=== PATIENT | female | born 1990 | race Caucasian/White ===

== ENCOUNTER 2021-10-08 15:14 | Inpatient (IN) ==
[2021-10-08 15:34] LABS: Pregnancy Test, Urine Negative (Negative)
[2021-10-08 15:37] LABS: Appearance Urine Clear (Clear); Bacteria Urine Automated Negative (Negative); Bilirubin Urine Negative (Negative); Blood Urine Trace (Negative); Color Urine Dark Yellow; Epithelial Cell Urine Auto >30 /lpf (0-5); Glucose Urine UA Negative (Negative); Ketones Urine 1+ (Negative); Leukocyte Esterase Urine Negative (Negative); Nitrite Urine Negative (Negative); Protein Urine Negative (Negative); RBC Urine Automated 0-4 /hpf (0-4); Specific Gravity Urine 1.025 (1.000-1.030); Urobilinogen Urine Negative (Negative)
[2021-10-08 15:51] LABS: Basophils # (auto) 0.02 K/uL (0-0.2); Basophils % (auto) 0.1 %; Eosinophils # (auto) 0.06 K/uL (0-0.5); Eosinophils % (auto) 0.3 %; Hemoglobin 13.4 g/dL (12.0-16.0); Immature Granulocytes # (auto) 0.03 K/uL (0.00-0.02); Immature Granulocytes % (auto) 0.2 %; Lymphocytes # (auto) 1.65 K/uL (1.2-3.4); Mean Corpuscular Hemoglobin 29.1 pg (25-34); Mean Corpuscular Hgb Conc 34.4 g/dL (32-36); Mean Corpuscular Volume 84.6 fL (80-100); Mean Platelet Volume 8.7 fL (7.4-10.4); Monocytes # (auto) 1.42 K/uL (0.11-0.59); Monocytes % (auto) 7.8 %; Neutrophils # (auto) 15.07 K/uL (1.4-6.5); Neutrophils % (auto) 82.6 %; Platelet Count 378 K/uL (130-400); RDW Coefficient of Variation 14.3 % (11.5-14.5); RDW Standard Deviation 44.1 fL (36.4-46.3); Red Blood Count 4.61 M/uL (4.2-5.4); White Blood Count 18.25 K/uL (4.8-10.8)
[2021-10-08 16:17] LABS: Albumin Globulin Ratio 1.1 (0.9-2); Albumin Level 3.9 gm/dl (3.4-5.0); BUN Creatinine Ratio 18.1 (10-20); Bilirubin,Total 0.5 mg/dl (0.2-1.0); Calcium 7.4 mg/dl (8.5-10.1); Creatinine Clr Calc Pharmacy 121.3 ml/min; Est GFR (African American) 108.1 ml/min; Est GFR (Non-African American) 93.3 ml/min; Globulin 3.5 gm/dl (2.5-4.0); Potassium 3.6 mmol/L (3.5-5.1); Total Protein 7.4 gm/dl (6.0-8.3)
[2021-10-08] MEDS ORDERED: SODIUM CHLORIDE 0.9% 1000ML 1,000 ML IV ONE (16:25)
[2021-10-08] MEDS ORDERED: KETOROLAC TROMETHAMINE 15 MG/ML VIAL IV STA (16:25)
--- NOTE | 2021-10-08 16:43 | Emergency Department Note ---
Impression & Plan Acute diverticulitis ED Provider Note CHIEF COMPLAINT: Left sided abdominal and flank pain HISTORY OF PRESENTING ILLNESS: This is a 30-year-old female presents to the emergency department by private vehicle with complaint of left-sided abdominal and flank pain. The patient. hCG negative. Urinalysis notes that she got her normal period last week, and initially was having some lower abdominal pain that she attributed to menstrual cramps, however over the past 2-3 days she has had worsening pain that now radiates up her left side and into her left flank area. She states the pain has been a constant dull ache with intermittent sharp stabbing pains on the left and she currently rates her pain 7/10. She has had some associated intermittent nausea, but denies any vomiting. She denies fevers or chills. She denies diarrhea, constipation, bloody or black stools. She notes that her urine has been darker than usual but she also feels she may be dehydrated. She denies any dysuria, urinary frequency or urgency, or foul- smelling urine. She denies any history of abdominal surgeries. She denies any concerns for , noting she had a normal period last week and is on control. REVIEW OF SYSTEMS: A complete 10 point review of systems was reviewed with the patient with pertinent positives and negatives as per history of present illness. All else were negative. PAST MEDICAL HISTORY: Hypothyroidism with history of thyroid cancer, s/p thyroidectomy, anxiety SOCIAL HISTORY: Lives at home, she is a current everyday smoker ALLERGIES: No known allergy PHYSICAL EXAM: CONSTITUTIONAL: Pleasant and cooperative. Nontoxic-appearing and in no acute distress. Mildly dehydrated, but otherwise well appearing and well nourished. HEENT: Normocephalic, atraumatic. Pharynx normal. Tacky mucous membranes. NECK: Supple, full active range of motion without discomfort. RESPIRATORY: Clear to auscultation bilaterally with no wheezing, crackles, rhonchi or stridor. Equal expansion bilaterally. CARDIOVASCULAR: Regular rate and rhythm with no murmurs, rubs or gallops. Normal peripheral perfusion. No edema. GASTROINTESTINAL: Tender to palpation in the left mid and lower abdomen and left flank, slight guarding. No rebound tenderness. The remainder of the abdomen is nontender, soft and nondistended. Obese abdomen. No palpable masses or HSM. Bowel sounds present in all quadrants. No CVA tenderness bilaterally. MUSCULOSKELETAL: Full range of motion of all joints without discomfort. INTEGUMENTARY: No rash or other significant dermatologic conditions noted. NEUROLOGIC: Alert and oriented X 4 with normal affect. Normal strength and sensation in all 4 extremities. Normal speech. Normal gait observed. ED COURSE AND MEDICAL DECISION MAKING: CC: Patient presenting with complaint of left abdominal and flank pain DIFFERENTIAL DIAGNOSIS: Includes, but not limited to UTI, pyelonephritis, ureteral stone, diverticulitis, ovarian cyst, ovarian torsion, ectopic pr egnancy, TOA, PID, infections, small bowel obstruction, bowel perforation, inflammatory bowel disease, PUD, pancreatitis, biliary pathology, hernia, volvulus, constipation, among others. INTERPRETATION OF LABS: Shows leukocytosis with left shift, no anemia, normal platelets, no significant electrolyte abnormalities, normal renal function, mildly elevated liver enzymes with a normal T bili and alk phos. Normal lipase. UA appears contaminated. Urine negative. MEDICATION RECONCILIATION: I attest that I have personally reviewed the patient's current medication list. INITIAL VITAL SIGNS REVIEW: I reviewed the patient's initial vital signs and interpret them as follows: T: Afebrile; BP: Hypertensive; HR: Mildly tachycardic; RR: Within normal limits; Pulse Ox: Within normal limits on room air. MDM SUMMARY: Patient was evaluated at bedside, history and physical exam performed. Patient is alert and oriented, in no acute distress, resting calmly in stretcher. Initial orders were placed by nursing staff under critical pathways for labs and urinalysis. These are still pending. The patient is quite tender in the left mid abdomen and flank region, but no CVA tenderness. No acute abdomen. She is afebrile and nontoxic-appearing, but does appear to be mildly dehydrated clinically. Additional orders were placed for urine , CT abdomen/pelvis with IV contrast, IV fluid bolus for hydration, IV Toradol for pain. Patient discussed with Dr. Brown, who agrees with my assessment, plan, and disposition. Labs and imaging reviewed, labs notable for leukocytosis, no other significant lab abnormalities. She is not . No evidence of UTI. CT imaging of the abdomen/pelvis notable for acute diverticulitis with microperforation of the descending colon with no other acute abdominal findings. I reassessed the patient and notified her of results. She is still in a lot of pain, orders were placed for IV morphine as well as IV Zofran to treat this. IV Zosyn was ordered to cover for the diverticulitis with microperforation. Covid test was also sent. I spoke on the phone with Dr. Dick, general surgery, who did not feel that the patient warranted any surgical intervention at this time and recommended admission to the hospitalist team. I spoke on the phone with Dr. Sharp, hospitalist, who agreed to evaluate the patient for admission. Patient reassessed multiple times throughout ED stay, she has remained hemodynamically stable, afebrile, tachycardia is downtrending, and her pain is improved after the morphine. The patient was updated on all results and plan for admission, all questions were answered to the best my ability and the patient was agreeable to this plan. The patient was stable at the time of admission. The chart was completed utilizing [employer] Speech voice recognition software. Grammatical errors, random word insertions, pronoun errors, and incomplete sentences are an occasional consequence of this system due to software limitations, ambient noise, and hardware issues. Any formal questions or concerns about the content, text, or information contained within the body of this dictation should be directly addressed to the nurse practitioner for clarification. 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 Beliefs That Will Affect Care: None Current Living Situation: Spouse Feels Safe at Home: Yes Assistive Devices: None Allergies Allergies Allergy/AdvReac Type Severity Reaction Status Date / Time No Known Allergies Allergy Unverified 10/08/21 16:32 Home Meds Home Medications Medication Instructions Recorded Confirmed levonorgestrel 0.15 mg-ethinyl 1 tab PO DAILY 05/11/21 10/08/21 estradiol 0.03 mg tablet levothyroxine 200 mcg tablet 200 mcg PO DAILY 05/11/21 10/08/21 paroxetine HCl 40 mg tablet 40 mg PO DAILY 05/11/21 10/08/21 Caltrate 600 plus D 1 tab PO BID 10/08/21 10/08/21 buspirone 5 mg tablet 7.5 mg PO BID 10/08/21 10/08/21 Previous Rx's Medication Instructions Recorded lorazepam 0.5 mg tablet (Ativan) 0.5 mg PO BID PRN #10 tab 05/11/21 Results & Data (ED) Vital Signs Vital Signs - 24 hr 10/08/21 15:16 10/08/21 16:54 10/08/21 18:00 Temperature 36.7 C Temperature Source Oral Pulse Rate 118 H Pulse Rate [Right Finger] 88 98 H Respiratory Rate 20 18 19 Respiratory Effort / Characteristics Non-Labored Non-Labored Spontaneous Respiratory Depth Normal Normal Respiratory Pattern Regular Blood Pressure 158/82 H Blood Pressure [Right Arm] 162/93 H 146/80 H Blood Pressure Mean 107 Blood Pressure Mean [Right Arm] 116 102 Blood Pressure Position Sitting Pulse Oximetry 98 100 98 Oxygen Delivery Method Room Air Room Air Room Air Sepsis Recent Fever Within 48 Hours No Sepsis New/Unexplained Change in Mental Status No Sepsis Action Taken by Nursing No Action Required Laboratory Data Result diagrams: 10/08/21 15:38 10/08/21 15:38 Lab Results 10/08/21 10/08/21 10/08/21 Range/Units 15:20 15:20 15:38 WBC 18.25 H (4.8-10.8) K/uL RBC 4.61 (4.2-5.4) M/uL Hgb 13.4 (12.0-16.0) g/dL Hct 39.0 (37-47) % MCV 84.6 (80-100) fL MCH 29.1 (25-34) pg MCHC 34.4 (32-36) g/dL RDW Std Deviation 44.1 (36.4-46.3) fL RDW Coeff of Leah 14.3 (11.5-14.5) % Plt Count 378 (130-400) K/uL MPV 8.7 (7.4-10.4) fL Immature Gran % (Auto) 0.2 % Neut % (Auto) 82.6 % Lymph % (Auto) 9.0 % Stephens % (Auto) 7.8 % Eos % (Auto) 0.3 % Baso % (Auto) 0.1 % Neut # (Auto) 15.07 H (1.4-6.5) K/uL Lymph # (Auto) 1.65 (1.2-3.4) K/uL Stephens # (Auto) 1.42 H (0.11-0.59) K/uL Eos # (Auto) 0.06 (0-0.5) K/uL Baso # (Auto) 0.02 (0-0.2) K/uL Immature Gran # (Auto) 0.03 H (0.00-0.02) K/uL Sodium (136-145) mmol/L Potassium (3.5-5.1) mmol/L Chloride (98-107) mmol/L Carbon Dioxide (21-32) mmol/L Anion Gap (3-11) BUN (6-23) mg/dl Creatinine (0.6-1.2) mg/dl Est Cr Clr Drug Dosing ml/min Est GFR ( Amer) ml/min Est GFR (Non-Af Amer) ml/min BUN/Creatinine Ratio (10-20) Glucose (70-99(Fasting)) mg/dl Calcium (8.5-10.1) mg/dl Total Bilirubin (0.2-1.0) mg/dl AST (13-39) U/L ALT (7-52) U/L Alkaline Phosphatase (34-104) U/L Total Protein (6.0-8.3) gm/dl Albumin (3.4-5.0) gm/dl Globulin (2.5-4.0) gm/dl Albumin/Globulin Ratio (0.9-2) Lipase (11-82) U/L Urine Color Dark Yellow Urine Appearance Clear (Clear) Urine pH 6.0 (4.5-7.5) Ur Specific [place] 1.025 (1.000-1.030) Urine Protein Negative (Negative) Urine Glucose (UA) Negative (Negative) Urine Ketones 1+ H (Negative) Urine Blood Trace H (Negative) Urine Nitrite Negative (Negative) Urine Bilirubin Negative (Negative) Urine Urobilinogen Negative (Negative) Ur Leukocyte Esterase Negative (Negative) Urine WBC (Auto) 1-5 (0-5) /hpf Urine RBC (Auto) 0-4 (0-4) /hpf U Hyaline Cast (Auto) 1-5 (0-5) /lpf U Epithel Cells (Auto) >30 H (0-5) /lpf Urine Bacteria (Auto) Negative (Negative) Urine Test Negative (Negative) SARS-CoV-2, RNA, NAAT (NEGATIVE) 10/08/21 10/08/21 Range/Units 15:38 17:56 WBC (4.8-10.8) K/uL RBC (4.2-5.4) M/uL Hgb (12.0-16.0) g/dL Hct (37-47) % MCV (80-100) fL MCH (25-34) pg MCHC (32-36) g/dL RDW Std Deviation (36.4-46.3) fL RDW Coeff of Leah (11.5-14.5) % Plt Count (130-400) K/uL MPV (7.4-10.4) fL Immature Gran % (Auto) % Neut % (Auto) % Lymph % (Auto) % Stephens % (Auto) % Eos % (Auto) % Baso % (Auto) % Neut # (Auto) (1.4-6.5) K/uL Lymph # (Auto) (1.2-3.4) K/uL Stephens # (Auto) (0.11-0.59) K/uL Eos # (Auto) (0-0.5) K/uL Baso # (Auto) (0-0.2) K/uL Immature Gran # (Auto) (0.00-0.02) K/uL Sodium 140 (136-145) mmol/L Potassium 3.6 (3.5-5.1) mmol/L Chloride 106 (98-107) mmol/L Carbon Dioxide 23 (21-32) mmol/L Anion Gap 11 (3-11) BUN 15 (6-23) mg/dl Creatinine 0.83 (0.6-1.2) mg/dl Est Cr Clr Drug Dosing 121.3 ml/min Est GFR ( Amer) 108.1 ml/min Est GFR (Non-Af Amer) 93.3 ml/min BUN/Creatinine Ratio 18.1 (10-20) Glucose 92 (70-99(Fasting)) mg/dl Calcium 7.4 L (8.5-10.1) mg/dl Total Bilirubin 0.5 (0.2-1.0) mg/dl AST 42 H (13-39) U/L ALT 101 H (7-52) U/L Alkaline Phosphatase 56 (34-104) U/L Total Protein 7.4 (6.0-8.3) gm/dl Albumin 3.9 (3.4-5.0) gm/dl Globulin 3.5 (2.5-4.0) gm/dl Albumin/Globulin Ratio 1.1 (0.9-2) Lipase 27 (11-82) U/L Urine Color Urine Appearance (Clear) Urine pH (4.5-7.5) Ur Specific [place] (1.000-1.030) Urine Protein (Negative) Urine Glucose (UA) (Negative) Urine Ketones (Negative) Urine Blood (Negative) Urine Nitrite (Negative) Urine Bilirubin (Negative) Urine Urobilinogen (Negative) Ur Leukocyte Esterase (Negative) Urine WBC (Auto) (0-5) /hpf Urine RBC (Auto) (0-4) /hpf U Hyaline Cast (Auto) (0-5) /lpf U Epithel Cells (Auto) (0-5) /lpf Urine Bacteria (Auto) (Negative) Urine Test (Negative) SARS-CoV-2, RNA, NAAT NEGATIVE (NEGATIVE) Administered Medications Buspirone HCl (Buspirone 7.5 Mg Tab) 7.5 mg PO BID LOUISA Stop: 11/07/21 21:36 Last Admin: 10/08/21 22:21 Dose: 7.5 mg Documented by: [id number] Enoxaparin Sodium (Enoxaparin Inj 40 Mg/0.4 Ml Syr) 40 mg SQ Q24H LOUISA Stop: 11/07/21 21:59 Last Admin: 10/08/21 22:21 Dose: 40 mg Documented by: [id number] Lactated Ringer's (Lr) 1,000 mls @ 80 mls/hr IV .[id number] LOUISA Stop: 11/07/21 21:36 Last Admin: 10/08/21 22:22 Dose: 80 mls/hr Documented by: [id number] Discontinued Medications Sodium Chloride (Nss 1000ml) 1,000 mls @ 999 mls/hr IV .[id number] ONE Stop: 10/08/21 17:25 Last Infusion: 10/08/21 17:54 Dose: 0 mls/hr Documented by: [id number] Admin: 10/08/21 16:53 Dose: 999 mls/hr Documented by: [id number] Piperacillin Sod/Tazobactam Sod (Zosyn) 4.5 gm in 120 mls @ 240 mls/hr IV NOW ONE Stop: 10/08/21 18:06 Last Infusion: 10/08/21 18:16 Dose: 0 mls/hr Documented by: [id number] Admin: 10/08/21 17:46 Dose: 240 mls/hr Documented by: [id number] Ioversol (Optiray 320 100ml) 94 ml IV ONCE ONE Stop: 10/08/21 17:09 Last Admin: 10/08/21 17:08 Dose: 94 ml Documented by: [id number] Ketorolac Tromethamine (Ketorolac Tromethamine 15 Mg/Ml Vial) 15 mg IV NOW STA Stop: 10/08/21 16:26 Last Admin: 10/08/21 16:51 Dose: 15 mg Documented by: [id number] Morphine Sulfate (Morphine Sulfate 4 Mg/Ml 1 Ml Carp\Vial) 4 mg IV NOW STA Stop: 10/08/21 17:38 Last Admin: 10/08/21 18:32 Dose: 4 mg Documented by: [id number] Ondansetron HCl (Ondansetron Inj 2 Mg/Ml 2 Ml Vial) 4 mg IV NOW STA Stop: 10/08/21 17:38 Last Admin: 10/08/21 18:29 Dose: 4 mg Documented by: [id number] Imaging Data Radiologist's Impression: Abdomen/Pelvis CT 10/08/21 16:[address] WITH IV CONTRAST CT DOSE: 1303.09 mGy.cm HISTORY: Acute left-sided flank pain left flank and lower abd pain TECHNIQUE: Multiaxial CT images of the abdomen and pelvis were performed following the IV administration of 94 cc of Optiray, A dose lowering technique was utilized adhering to the principles of ALARA. COMPARISON STUDY: Chest radiograph 05/11/2021 FINDINGS: 3 mm solid nodule of the right middle lobe, image 31 series 3 is favored to be benign. The lung bases are otherwise clear. Unremarkable spleen, pancreas and adrenal glands. Contracted gallbladder. Hepatomegaly with suggested hepatic steatosis. Patent portal vein. 3 mm nonobstructing calculus of the interpolar right kidney. Kidneys are otherwise unremarkable. No hydronephrosis. The urinary bladder and uterus appear unremarkable. Aorta and IVC are within normal limits. No adenopathy. Small hiatal hernia. There is no bowel obstruction. Mild fecal retention. There is acute diverticulitis of the mid descending colon with moderate inflammation centered around a diverticulum on image 216. There are a few foci of adjacent extraluminal air. No abscess. Mild wall thickening of the transverse colon may be secondary to partial distention. Noninflamed appendix. Unremarkable soft tissues. No acute fracture. There are a few scattered probable bone islands noted within the pelvis. IMPRESSION: 1. Acute diverticulitis of the descending colon with evidence of microperforation. No abscess. 2. No bowel obstruction. 3. Small hiatal hernia. 4. 3 mm nonobstructing right renal calculus. ACT 112: Negative or not required by law. The above report was generated using voice recognition software. It may contain grammatical, syntax or spelling errors. Electronically signed by: Jasbir Lira M.D. 10/08/2021 5:26 PM Discharge Plan Visit Data Chief Complaint: Abdominal Pain Stated Complaint: LT ABDOM PAIN ED Provider: Ellis Brown ED Midlevel Provider: Crissy Mendez Discharge Problem: Acute diverticulitis Patient Disposition: Admitted As Inpatient Discharge Instructions Interventions: ED Discharge Assessment Last Done: 10/08/21 21:12
[2021-10-08] MEDS ORDERED: OPTIRAY 320 100ml IV ONE (17:08)
--- NOTE | 2021-10-08 17:27 | CT Scan Report ---
ABDOMEN AND PELVIS CT WITH IV CONTRAST CT DOSE: 1303.09 mGy.cm HISTORY: Acute left-sided flank pain left flank and lower abd pain TECHNIQUE: Multiaxial CT images of the abdomen and pelvis were performed following the IV administrat ion of 94 cc of Optiray, A dose lowering technique was utilized adhering to the principles of ALARA. COMPARISON STUDY: Chest radiograph 05/11/2021 FINDINGS: 3 mm solid nodule of the right middle lobe, image 31 series 3 is favored to be benign. The lung bases are otherwise clear. Unremarkable spleen, pancreas and adrenal glands. Contracted gallblad ja. Hepatomegaly with suggested hepatic steatosis. Patent portal vein. 3 mm nonobstructing calculus of the interpolar right kidney. Kidneys are otherwise unremarkable. No hydronephrosis. The urinary bl adder and uterus appear unremarkable. Aorta and IVC are within normal limits. No adenopathy. Small hiatal hernia. There is no bowel obstruction. Mild fecal retention. There is acute diverticulit is of the mid descending colon with moderate inflammation centered around a diverticulum on image 216 . There are a few foci of adjacent extraluminal air. No abscess. Mild wall thickening of the transver se colon may be secondary to partial distention. Noninflamed appendix. Unremarkable soft tissues. No acute fracture. There are a few scattered probable bone islands noted within the pelvis. IMPRESSION: 1. Acute diverticulitis of the descending colon with evidence of microperforation. No abscess. 2. No bowel obstruction. 3. Small hiatal hernia. 4. 3 mm nonobstructing right renal calculus. ACT 112: Negative or not required by law. The above report was generated using voice recognition software. It may contain grammatical, syntax o r spelling errors. Electronically signed by: Jasbir Lira M.D. 10/08/2021 5:26 PM
[2021-10-08] MEDS ORDERED: MoRPHine SULFATE 4 MG/ML 1 ML CARP\\VIAL IV STA (17:37)
[2021-10-08] MEDS ORDERED: PIPERACILL/TAZOBAC CONSULT ACTIVE PRN (17:37)
[2021-10-08] MEDS ORDERED: ONDANSETRON INJ 2 MG/ML 2 ML VIAL IV STA (17:37)
[2021-10-08] MEDS ORDERED: PIPERACILLIN/TAZOBACTAM 4.5 GM/120 ML BAG IV ONE (17:37)
--- NOTE | 2021-10-08 19:19 | History & Physical Report ---
Date of Service October 08, 2021 Assessment & Plan (1) Diverticulitis: Plan: With microperforationUnasyn, supportive care. Doubt she will need surgeryserial exams, time. (2) Hypothyroidism (acquired): Plan: Continue Synthroid (3) Anxiety: Plan: Offered reassurance and detailed explanations which helped considerably surrounding her medical details. Continue home meds (4) DVT prophylaxis: Plan: Lovenox (5) Discharge planning issues: [facility] Plan for IV antibiotics, and ultimate discharge home Counseled briefly on smoke cessation, and overall healthy lifestyle changes. History of Present Illness Chief Complaint: Abdominal pain Primary Care Provider: Kyle Carrasquillo Very pleasant 30-year-old female started about a week ago with abdominal painshe was having her period at the time so she really thought it was just heavy cramping, but the pain continued to worsen. Today it was very intense left-sided and left flank. Came to the ER for further evaluation, found to have diverticulitis with microperforation. No nausea or vomiting. No fevers chills or sweats, no chest pain shortness of breath. Past medical history includes thyroid cancer that is post thyroidectomy and she is greater than 5-year cancer free. Anxiety. Surgical history thyroidectomy Social history she smokes about 3 cigarettes a day on average, is interested in quitting. Her does not smoke, although he does chew tobacco. 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 Mom also has had kidney cancer as well as several other comorbidities Allergies Allergy/AdvReac Type Severity Reaction Status Date / Time No Known Allergies Allergy Unverified 10/08/21 16:32 Home Medications Medication Instructions Recorded Confirmed Type levonorgestrel 0.15 mg-ethinyl 1 tab PO DAILY 05/11/21 10/08/21 History estradiol 0.03 mg tablet levothyroxine 200 mcg tablet 200 mcg PO DAILY 05/11/21 10/08/21 History lorazepam 0.5 mg tablet (Ativan) 0.5 mg PO BID PRN #10 tab 05/11/21 10/08/21 Rx paroxetine HCl 40 mg tablet 40 mg PO DAILY 05/11/21 10/08/21 History Caltrate 600 plus D 1 tab PO BID 10/08/21 10/08/21 History buspirone 5 mg tablet 7.5 mg PO BID 10/08/21 10/08/21 History Past Med/Surg History Medical History (Updated 10/08/21 @ 20:39 by Jamison Sharp DO) Diverticulitis Hypothyroidism (acquired) Obesity, morbid, BMI 40.0-49.9 Social History Smoking Status: Current every day smoker Feels Safe at Home: Yes Review of Systems Review of Systems: All systems reviewed & are unremarkable except as noted in HPI & below Physical Exam Physical Exam: In general she is awake and alert pleasant no distress. HEENT normocephalic atraumatic mucous membranes moist. Cardio is regular no rubs murmurs or gallops. Lungs clear to auscultation bilaterally no rales rhonchi wheeze with good effort. Abdomen is soft nondistended she does have left-sided tenderness worst lateral flank, she noted be quite tender therehowever there is no guarding rebound or rigidity. Extremities show no sinus clubbing or edema, no calf tenderness. Neuro shows cranial nerves II through XII grossly intact gross motor and sensory intact. Musculoskeletal exam yields no gross lesions. Skin shows no rashes, no pallor, no icterus. Mental status shows good recent and remote recall normal mood and affect good judgment and insight. Results & Data Results & Data ([facility]) Vital Signs (Past 12 Hours) Vital Signs Temp Pulse Pulse Resp BP BP Pulse Ox 10/08/21 18:00 98 H 19 146/80 H 98 10/08/21 16:54 88 18 162/93 H 100 10/08/21 15:16 98.1 F 118 H 20 158/82 H 98 Code Status & VTE Plan VTE Prophylaxis Plan VTE Prophylaxis will be ordered: Yes PG Care Time/CCT Total # of Minutes Spent Total Time Spent with Patient: Total time spent is greater than 50% in coordination of care (as documented) at patient's floor/unit and/or counseling patient: Coding Level of Care Code 16041 Initial Inpt Care Lvl 3 Diagnoses Diverticulitis K57.92 Hypothyroidism (acquired) E03.9 Anxiety F41.9 DVT prophylaxis Z29.9 Discharge planning issues Z02.9
--- NOTE | 2021-10-08 19:20 | Surgery Consultation ---
Date of Consultation October 08, 2021 Assessment & Plan (1) Diverticulitis: 30-year-old female with uncomplicated diverticulitis No surgical intervention at this time IV antibiotics, npo, ivf's surgery will follow (2) Obesity, morbid, BMI 40.0-49.9: (3) Hypothyroidism (acquired): History of Present Illness Reason for Consultation: Diverticulitis History of Present Illness 30-year-old female presented to the emergency department with 2 weeks of progressive left lower quadrant and left flank abdominal pain. 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 No prior history of diverticulitis or other colon issues. Her mother did have a history of diverticulitis and eventually required sigmoidectomy. She has had thyroidectomy for thyroid cancer. No other significant medical problems. No blood thinners. No prior abdominal surgeries. No prior colonoscopy. Allergies Allergy/AdvReac Type Severity Reaction Status Date / Time No Known Allergies Allergy Unverified 10/08/21 16:32 Home Medications Medication Instructions Recorded Confirmed Type levonorgestrel 0.15 mg-ethinyl 1 tab PO DAILY 05/11/21 10/08/21 History estradiol 0.03 mg tablet levothyroxine 200 mcg tablet 200 mcg PO DAILY 05/11/21 10/08/21 History lorazepam 0.5 mg tablet (Ativan) 0.5 mg PO BID PRN #10 tab 05/11/21 10/08/21 Rx paroxetine HCl 40 mg tablet 40 mg PO DAILY 05/11/21 10/08/21 History Caltrate 600 plus D 1 tab PO BID 10/08/21 10/08/21 History buspirone 5 mg tablet 7.5 mg PO BID 10/08/21 10/08/21 History Patient History Medical History (Updated 10/08/21 @ 19:18 by Cj Dick DO, FACS) Diverticulitis Hypothyroidism (acquired) Obesity, morbid, BMI 40.0-49.9 Social History Smoking Status: Current every day smoker Feels Safe at Home: Yes Review of Systems Review of Systems: All systems reviewed & are unremarkable except as noted in HPI & below Physical Exam Constitutional: WD/WN, vitals as above + obese Respiratory: normal respiratory effort, lungs clear to auscultation Cardiovascular: RRR, no murmur, no edema Gastrointestinal (Abdomen): Percussion/Palpation: + abdomen tender (Left lower quadrant and left flank) and abdomen soft; no guarding, abdomen not rigid, no hepatosplenomegaly and no hernia Results & Data ([facility]) Vital Signs (Past 12 Hours) Vital Signs Temp Pulse Pulse Resp BP BP Pulse Ox 10/08/21 18:00 98 H 19 146/80 H 98 10/08/21 16:54 88 18 162/93 H 100 10/08/21 15:16 36.7 C 118 H 20 158/82 H 98 Laboratory Results Laboratory Results - last 24 hr 10/08/21 10/08/21 10/08/21 15:20 15:20 15:38 WBC 18.25 H RBC 4.61 Hgb 13.4 Hct 39.0 MCV 84.6 MCH 29.1 MCHC 34.4 RDW Std Deviation 44.1 RDW Coeff of Leah 14.3 Plt Count 378 MPV 8.7 Immature Gran % (Auto) 0.2 Neut % (Auto) 82.6 Lymph % (Auto) 9.0 Fisher % (Auto) 7.8 Eos % (Auto) 0.3 Baso % (Auto) 0.1 Neut # (Auto) 15.07 H Lymph # (Auto) 1.65 Fisher # (Auto) 1.42 H Eos # (Auto) 0.06 Baso # (Auto) 0.02 Immature Gran # (Auto) 0.03 H Sodium Potassium Chloride Carbon Dioxide Anion Gap BUN Creatinine Est Cr Clr Drug Dosing Est GFR ( Amer) Est GFR (Non-Af Amer) BUN/Creatinine Ratio Glucose Calcium Total Bilirubin AST ALT Alkaline Phosphatase Total Protein Albumin Globulin Albumin/Globulin Ratio Lipase Urine Color Dark Yellow Urine Appearance Clear Urine pH 6.0 Ur Specific [place] 1.025 Urine Protein Negative Urine Glucose (UA) Negative Urine Ketones 1+ H Urine Blood Trace H Urine Nitrite Negative Urine Bilirubin Negative Urine Urobilinogen Negative Ur Leukocyte Esterase Negative Urine WBC (Auto) 1-5 Urine RBC (Auto) 0-4 U Hyaline Cast (Auto) 1-5 U Epithel Cells (Auto) >30 H Urine Bacteria (Auto) Negative Urine Test Negative SARS-CoV-2, RNA, NAAT 10/08/21 10/08/21 15:38 17:56 WBC RBC Hgb Hct MCV MCH MCHC RDW Std Deviation RDW Coeff of Leah Plt Count MPV Immature Gran % (Auto) Neut % (Auto) Lymph % (Auto) Fisher % (Auto) Eos % (Auto) Baso % (Auto) Neut # (Auto) Lymph # (Auto) Fisher # (Auto) Eos # (Auto) Baso # (Auto) Immature Gran # (Auto) Sodium 140 Potassium 3.6 Chloride 106 Carbon Dioxide 23 Anion Gap 11 BUN 15 Creatinine 0.83 Est Cr Clr Drug Dosing 121.3 Est GFR ( Amer) 108.1 Est GFR (Non-Af Amer) 93.3 BUN/Creatinine Ratio 18.1 Glucose 92 Calcium 7.4 L Total Bilirubin 0.5 AST 42 H ALT 101 H Alkaline Phosphatase 56 Total Protein 7.4 Albumin 3.9 Globulin 3.5 Albumin/Globulin Ratio 1.1 Lipase 27 Urine Color Urine Appearance Urine pH Ur Specific [place] Urine Protein Urine Glucose (UA) Urine Ketones Urine Blood Urine Nitrite Urine Bilirubin Urine Urobilinogen Ur Leukocyte Esterase Urine WBC (Auto) Urine RBC (Auto) U Hyaline Cast (Auto) U Epithel Cells (Auto) Urine Bacteria (Auto) Urine Test SARS-CoV-2, RNA, NAAT NEGATIVE Diagnostic Findings ABDOMEN AND PELVIS CT WITH IV CONTRAST CT DOSE: 1303.09 mGy.cm HISTORY: Acute left-sided flank pain left flank and lower abd pain TECHNIQUE: Multiaxial CT images of the abdomen and pelvis were performed following the IV administration of 94 cc of Optiray, A dose lowering technique was utilized adhering to the principles of ALARA. COMPARISON STUDY: Chest radiograph 05/11/2021 FINDINGS: 3 mm solid nodule of the right middle lobe, image 31 series 3 is favored to be benign. The lung bases are otherwise clear. Unremarkable spleen, pancreas and adrenal glands. Contracted gallbladder. Hepatomegaly with suggested hepatic steatosis. Patent portal vein. 3 mm nonobstructing calculus of the interpolar right kidney. Kidneys are otherwise unremarkable. No hydronephrosis. The urinary bladder and uterus appear unremarkable. Aorta and IVC are within normal limits. No adenopathy. Small hiatal hernia. There is no bowel obstruction. Mild fecal retention. There is acute diverticulitis of the mid descending colon with moderate inflammation centered around a diverticulum on image 216. There are a few foci of adjacent extraluminal air. No abscess. Mild wall thickening of the transverse colon may be secondary to partial distention. Noninflamed appendix. Unremarkable soft tissues. No acute fracture. There are a few scattered probable bone islands noted within the pelvis. IMPRESSION: 1. Acute diverticulitis of the descending colon with evidence of microperforation. No abscess. 2. No bowel obstruction. 3. Small hiatal hernia. 4. 3 mm nonobstructing right renal calculus. PG Care Time/CCT Total # of Minutes Spent Total Time Spent with Patient: Total time spent is greater than 50% in coordination of care (as documented) at patient's floor/unit and/or counseling patient: Coding Level of Care Code 64073 Office/OBS Consult Lvl 3 Diagnoses Diverticulitis K57.92 Obesity, morbid, BMI 40.0-49.9 E66.01 Hypothyroidism (acquired) E03.9
[2021-10-08] MEDS ORDERED: LORazepam 0.5 MG TAB PO PRN (21:37)
[2021-10-08] MEDS ORDERED: ACETAMINOPHEN 1,000 MG/100 ML VIAL IV PRN (21:37)
[2021-10-08] MEDS ORDERED: MoRPHine SULFATE 4 MG/ML 1 ML CARP\\VIAL IV PRN (21:37)
[2021-10-08] MEDS ORDERED: ONDANSETRON INJ 2 MG/ML 2 ML VIAL IV PRN (21:37)
[2021-10-08] MEDS ORDERED: ACETAMINOPHEN 500 MG TAB PO PRN (21:51)
[2021-10-08] MEDS: busPIRone 7.5 MG TAB PO SCH (22:21)
[2021-10-08] MEDS: ENOXAPARIN INJ 40 MG/0.4 ML SYR SQ SCH (22:21)
[2021-10-08] MEDS: LACTATED RINGER'S 1,000 ML IV SCH (22:22)
[2021-10-08] MEDS ORDERED: Nursing to Pharmacy Communication SCH (22:45)
[2021-10-08] MEDS: AMPICILLIN/SULBACTAM SOD 3,000 MG in 0.9 % SODIUM CHLORIDE 100 ML IV SCH (23:47)
[2021-10-09] MEDS ORDERED: PARoxetine HCL 20 MG TAB PO ONE (00:15)
[2021-10-09] MEDS: LEVOTHYROXINE SODIUM 200 MCG TABLET PO SCH (05:38)
[2021-10-09] MEDS: AMPICILLIN/SULBACTAM SOD 3,000 MG in 0.9 % SODIUM CHLORIDE 100 ML IV SCH ×4 (05:38→23:54)
[2021-10-09 07:51] LABS: Basophils # (auto) 0.03 K/uL (0-0.2); Basophils % (auto) 0.2 %; Eosinophils # (auto) 0.12 K/uL (0-0.5); Eosinophils % (auto) 0.8 %; Hematocrit (blood only) 36.3 % (37-47); Hemoglobin 11.9 g/dL (12.0-16.0); Immature Granulocytes # (auto) 0.05 K/uL (0.00-0.02); Immature Granulocytes % (auto) 0.3 %; Lymphocytes # (auto) 1.51 K/uL (1.2-3.4); Mean Corpuscular Hemoglobin 28.1 pg (25-34); Mean Corpuscular Hgb Conc 32.8 g/dL (32-36); Mean Corpuscular Volume 85.6 fL (80-100); Mean Platelet Volume 8.9 fL (7.4-10.4); Monocytes # (auto) 1.11 K/uL (0.11-0.59); Monocytes % (auto) 7.4 %; Neutrophils # (auto) 12.24 K/uL (1.4-6.5); Neutrophils % (auto) 81.3 %; Platelet Count 292 K/uL (130-400); RDW Coefficient of Variation 14.6 % (11.5-14.5); RDW Standard Deviation 45.5 fL (36.4-46.3); Red Blood Count 4.24 M/uL (4.2-5.4); White Blood Count 15.06 K/uL (4.8-10.8)
[2021-10-09 08:17] LABS: BUN Creatinine Ratio 16.7 (10-20); Calcium 6.4 mg/dl (8.5-10.1); Creatinine Clr Calc Pharmacy 154.7 ml/min; Est GFR (African American) 135.5 ml/min; Est GFR (Non-African American) 116.9 ml/min; Potassium 3.7 mmol/L (3.5-5.1)
[2021-10-09] MEDS ORDERED: PARoxetine HCL 20 MG TAB PO SCH ×2 (09:00→21:00)
[2021-10-09] MEDS: busPIRone 7.5 MG TAB PO SCH ×2 (09:09→20:41)
[2021-10-09] MEDS: LEVONORGESTREL ETHINYL ESTRAD PO SCH (09:09)
--- NOTE | 2021-10-09 09:39 | Surgery Progress Note ---
Date of Service October 09, 2021 Assessment & Plan (1) Acute diverticulitis: Plan: Patient here with acute diverticulitis with microperforation WBC 15 (18), VSS and patient afebrile Pain improving, passing flatus, tolerating clears Continue IV abx today May consider further diet advancement this afternoon if feeling well Recommend outpatient colonoscopy in 6-8 wks with GI Upon time of dispo recommend a low fiber diet for a couple of weeks and complete a course of po abx Dr. Cruz covering over wknd if questions/concerns Admission and Anticipated Discharge Date Admission Date: October 08, 2021 Supervising Physician Co-Signing Physician Notes Patient seen and examined, agree with above. Admitted with uncomplicated diverticulitis. Feels slightly better this morning. On exam afebrile, tenderness to palpation in the left lower quadrant, though improved from yesterday. WBC 15 down from 18. Recommend continued IV antibiotics, advance diet as tolerated as pain resolves and white blood cell count normalizes. She should be discharged with antibiotics. Outpatient colonoscopy in 2 to 3 months after resolution of symptoms. No surgical indication at this time. Surgery will follow peripherally, Dr. Cruz covering over the weekend. Subjective Patient feeling well. Some crampiness in lower abdomen, but better than yesterday. Passing flatus, no BM. Tolerating clears Physical Exam Physical Exam: awake/alert, no acute distress Gastrointestinal (Abdomen): Percussion/Palpation: + abdomen tender (some discomfort to palpation in LLQ, improved) and abdomen soft Results & Data ([facility]) Vital Signs (Past 12 Hours) Vital Signs Temp Pulse Resp BP BP Pulse Ox 10/09/21 07:49 36.6 C 89 16 121/78 97 10/08/21 22:53 37.5 C 86 18 149/80 H 96 PG Care Time/CCT Total # of Minutes Spent Total Time Spent with Patient: Total time spent is greater than 50% in coordination of care (as documented) at patient's floor/unit and/or counseling patient: Coding Level of Care Code 12406 Subseq Hosp Care Lvl 1 Diagnoses Acute diverticulitis K57.92
[2021-10-09] MEDS: LACTATED RINGER'S 1,000 ML IV SCH ×2 (11:50→23:53)
--- NOTE | 2021-10-09 17:15 | Hospitalist Progress Note ---
Date of Service October 09, 2021 Assessment & Plan (1) Diverticulitis: Plan: With microperforationUnasyn, pain control and IV fluids remains on liquid diet (2) Hypothyroidism (acquired): Plan: Continue Synthroid (3) Anxiety: Plan: Offered reassurance and detailed explanations which helped considerably surrounding her medical details. Continue home meds (4) DVT prophylaxis: Plan: Lovenox (5) Discharge planning issues: Plan[facility] Plan for IV antibiotics, and ultimate discharge home Counseled briefly on smoke cessation, and overall healthy lifestyle changes. Admission and Anticipated Discharge Date Admission Date: October 08, 2021 Subjective pt has resolution in abdominal pain and now is just low level. surgery feels may need more antibiotic, and will slowly advance diet Review of Systems Review of Systems: Mild distress and fatigue no headache, no visual changes no speech or swallowing issues no chest pain, pressure or palpitations no shortness of breath, cough or wheezes Very mild left lower quadrant abdominal pain, no nausea or vomiting, no diarrhea but loose bowel movements no dysuria, hematuria or frequency no focal joint pain or swelling no back pain, CVA tenderness or radicular pain no bruising, bleeding or rashes no focal signs of weakness or numbness or altered sensation no complaints of anxiety or depression.. Physical Exam Physical Exam: The patient appeared well nourished and normally developed. Vital signs as documented. Head exam is normocephalic atraumatic Neck is without JVD, thyromegaly, or carotid bruits. Lungs are clear to auscultation, no focal loss of breath sounds Cardiac exam, Rhythm is regular.. No murmurs, rubs or gallops. Abdominal exam reveals normal bowel sounds, soft very mild left-sided tenderness no rebound no guarding Extremities are nonedematous and both pedal pulses are present Neurologic exam is alert and oriented, no focal loss of strength or sensation Skin is without bruises or rashes Psychologically is without concerns for anxiety or depression.. Results & Data Results & Data ([facility]) Vital Signs (Past 12 Hours) Vital Signs Temp Pulse Resp BP BP Pulse Ox 10/09/21 16:37 98.2 F 86 16 134/67 97 10/09/21 07:49 97.9 F 89 16 121/78 97 PG Care Time/CCT Total # of Minutes Spent Total Time Spent with Patient: Total time spent is greater than 50% in coordination of care (as documented) at patient's floor/unit and/or counseling patient: Coding Level of Care Code 40937 Subseq Hosp Care Lvl 1 Diagnoses Diverticulitis K57.92 Hypothyroidism (acquired) E03.9 Anxiety F41.9 DVT prophylaxis Z29.9 Discharge planning issues Z02.9
[2021-10-09] MEDS: ENOXAPARIN INJ 40 MG/0.4 ML SYR SQ SCH (20:41)
[2021-10-10] MEDS: AMPICILLIN/SULBACTAM SOD 3,000 MG in 0.9 % SODIUM CHLORIDE 100 ML IV SCH ×2 (05:53→12:03)
[2021-10-10] MEDS: LEVOTHYROXINE SODIUM 200 MCG TABLET PO SCH (05:54)
[2021-10-10] MEDS: LEVONORGESTREL ETHINYL ESTRAD PO SCH (09:00)
[2021-10-10] MEDS: busPIRone 7.5 MG TAB PO SCH (09:00)
[2021-10-10 09:48] LABS: Basophils # (auto) 0.02 K/uL (0-0.2); Basophils % (auto) 0.2 %; Eosinophils # (auto) 0.08 K/uL (0-0.5); Eosinophils % (auto) 0.8 %; Hematocrit (blood only) 34.9 % (37-47); Hemoglobin 11.5 g/dL (12.0-16.0); Immature Granulocytes # (auto) 0.03 K/uL (0.00-0.02); Immature Granulocytes % (auto) 0.3 %; Lymphocytes # (auto) 1.01 K/uL (1.2-3.4); Lymphocytes % (auto) 9.9 %; Mean Corpuscular Hemoglobin 27.9 pg (25-34); Mean Corpuscular Volume 84.7 fL (80-100); Mean Platelet Volume 9.1 fL (7.4-10.4); Monocytes % (auto) 5.9 %; Neutrophils # (auto) 8.45 K/uL (1.4-6.5); Neutrophils % (auto) 82.9 %; Platelet Count 306 K/uL (130-400); RDW Coefficient of Variation 14.2 % (11.5-14.5); RDW Standard Deviation 44.2 fL (36.4-46.3); Red Blood Count 4.12 M/uL (4.2-5.4); White Blood Count 10.19 K/uL (4.8-10.8)
[2021-10-10 10:14] LABS: BUN Creatinine Ratio 12.2 (10-20); Calcium 6.2 mg/dl (8.5-10.1); Creatinine Clr Calc Pharmacy 208.3 ml/min; Est GFR (African American) 149.4 ml/min; Est GFR (Non-African American) 128.9 ml/min; Potassium 3.5 mmol/L (3.5-5.1)
[2021-10-10] MEDS: LACTATED RINGER'S 1,000 ML IV SCH (12:04)
--- NOTE | 2021-10-10 12:38 | Discharge Summary ---
Date of Service October 10, 2021 Admission HPI Per Admitting Provider Very pleasant 30-year-old female started about a week ago with abdominal painshe was having her period at the time so she really thought it was just heavy cramping, but the pain continued to worsen. Today it was very intense left-sided and left flank. Came to the ER for further evaluation, found to have diverticulitis with microperforation. No nausea or vomiting. No fevers chills or sweats, no chest pain shortness of breath. Past medical history includes thyroid cancer that is post thyroidectomy and she is greater than 5-year cancer free. Anxiety. Surgical history thyroidectomy Social history she smokes about 3 cigarettes a day on average, is interested in quitting. Her does not smoke, although he does chew tobacco. 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 Mom also has had kidney cancer as well as several other comorbidities Admission Exam Per Admitting Provider In general she is awake and alert pleasant no distress. HEENT normocephalic atraumatic mucous membranes moist. Cardio is regular no rubs murmurs or gallops. Lungs clear to auscultation bilaterally no rales rhonchi wheeze with good effort. Abdomen is soft nondistended she does have left-sided tenderness worst lateral flank, she noted be quite tender therehowever there is no guarding rebound or rigidity. Extremities show no sinus clubbing or edema, no calf tenderness. Neuro shows cranial nerves II through XII grossly intact gross motor and sensory intact. Musculoskeletal exam yields no gross lesions. Skin shows no rashes, no pallor, no icterus. Mental status shows good recent and remote recall normal mood and affect good judgment and insight. Principal Diagnosis Bowel perforation Discharge Exam GENERAL : No acute distress EYES: No icterus, gaze conjugate NOSE: No evidence of epistaxis MOUTH: No lesions or candidiasis NECK: Supple LUNGS: CTA B/L, no wheezes, rales or rhonchi HEART: Regular, rate controlled ABDOMEN: Soft, NT, ND, BS Present. No pain to deep palpation. No guarding. No rebound tenderness. EXTREMITIES: No LE edema, pedal pulses intact NEURO: A&OX3 Discharge Data Allergies Allergy/AdvReac Type Severity Reaction Status Date / Time No Known Allergies Allergy Unverified 10/08/21 16:32 Consultations 10/08/21 18:22 ED Decision to Admit Stat 10/08/21 21:37 Consult General Surgery Routine Ordered Studies 10/08/21 16:25 CT abd pelvis IV con only Stat ABDOMEN AND PELVIS CT WITH IV CONTRAST CT DOSE: 1303.09 mGy.cm HISTORY: Acute left-sided flank pain left flank and lower abd pain TECHNIQUE: Multiaxial CT images of the abdomen and pelvis were performed following the IV administration of 94 cc of Optiray, A dose lowering technique was utilized adhering to the principles of ALARA. COMPARISON STUDY: Chest radiograph 05/11/2021 FINDINGS: 3 mm solid nodule of the right middle lobe, image 31 series 3 is favored to be benign. The lung bases are otherwise clear. Unremarkable spleen, pancreas and adrenal glands. Contracted gallbladder. Hepatomegaly with suggested hepatic steatosis. Patent portal vein. 3 mm nonobstructing calculus of the interpolar right kidney. Kidneys are otherwise unremarkable. No hydronephrosis. The urinary bladder and uterus appear unremarkable. Aorta and IVC are within normal limits. No adenopathy. Small hiatal hernia. There is no bowel obstruction. Mild fecal retention. There is acute diverticulitis of the mid descending colon with moderate inflammation centered around a diverticulum on image 216. There are a few foci of adjacent extraluminal air. No abscess. Mild wall thickening of the transverse colon may be secondary to partial distention. Noninflamed appendix. Unremarkable soft tissues. No acute fracture. There are a few scattered probable bone islands noted within the pelvis. IMPRESSION: 1. Acute diverticulitis of the descending colon with evidence of microperforation. No abscess. 2. No bowel obstruction. 3. Small hiatal hernia. 4. 3 mm nonobstructing right renal calculus. ACT 112: Negative or not required by law. The above report was generated using voice recognition software. It may contain grammatical, syntax or spelling errors. Electronically signed by: Jasbir Lira M.D. 10/08/2021 5:26 PM Hospital Course (1) Diverticulitis: With microperforationUnasyn, pain control and IV fluids remains on liquid diet while inpatient. Discharged on Augmentin twice daily for 11 additional days Follow-up with primary care within 5 days If increased pain, fever, nausea or vomiting, advised patient to report to emergency department or call primary care provider Continue with low-fat, low fiber soft diet. Advance gradually over the next 2 to 3 days When patient back to regular diet, start to take fiber supplement again (2) Hypothyroidism (acquired): Continue Synthroid (3) Anxiety: Offered reassurance and detailed explanations which helped considerably surrounding her medical details. Continue home meds (4) DVT prophylaxis: Lovenox while inpatient Increase activity on discharge as tolerated (5) Discharge planning issues: Ad[facility], surgical consult. Plan for IV antibiotics, and ultimate discharge home Counseled briefly on smoke cessation, and overall healthy lifestyle changes. (6) Tobacco abuse: Patient smokes [address] to work, [address] home from work, 1 cigarette after dinner Educated patient on dangers of nicotine particularly with tissue healing Recommended complete abstention of smoking immediately. Discharge home today. No home health needs identified Patient Follow-up with primary care physician in 5 days Elective follow-up with surgery in 2 weeks Complete all medications including Augmentin twice daily Total Time Total Time Spent Total Time Spent (In Minutes): 60 minutes Discharge Plan Discharge Items Patient Disposition: Home - Self-Care Reason For Visit: DIVERTICULITIS Discharge Diagnosis: Micropeforation of bowel Activity: Resume your previous activity Lifting: Gradually increase as tolerated Sexual Activity: After one week Exercise/Sports: Gradually increase as tolerated Driving/Machine Use: Resume 3 days after discharge Weightbearing: Full weightbearing Non-emergency contact: Primary Care Provider Call non-emergency contact if: you have any medication questions, your symptoms worsen, your pain is concerning for you and you have a fever Follow-up/Referrals: Kyle Carrasquillo [Primary Care Provider] - (Follow up within the next 5 days) Diet: Low Fiber and Low Fat Diet Comment: Start with soft diet and advance slowly over the next 2-3 days Addtl Attending Provider Instructions: You were admitted and found to have a small perforation of your bowel. You are responding well to IV antibiotics and will be discharged on Augmentin 2 times daily for a total of 14 14 days of therapy. You should follow up with your primary care physician within the next 5 days. You should also start taking a probiotic 3 times daily while on antibiotics. I will send an Rx but this may not be covered by your insurance. Active ingredient should include lactobacillus acidophilus. Continue a low fat, low fiber diet and slowly increase to a regular diet over the next 2-3 days. At that time, you can resume your fiber supplement. You should completely stop smoking as this inhibits healing of tissue and has halfway risk of malignancy, lung disease, etc even with moderate use. Continue to work on calorie reduction and increased exercise after you are recovered from your illness. If you develop fever or increased abdominal pain and can not get in to see your primary care physician team, report to the emergency department for re- evaluation. Pending Studies at Discharge: No Stand-Alone Forms: [facility], Smoking Cessation Medications and DC Order Prescriptions: New amoxicillin-pot clavulanate [Augmentin XR] 1,000-62.5 mg tablet extended release 12 hr 1 tab PO Q12H 11 Days Qty: 22 RF: 0 Lactobacillus acidophilus 100 mg (1 billion cell) capsule 100 mg PO TID Qty: 60 RF: 0 Continued buspirone 5 mg tablet 7.5 mg PO BID RF: 0 Caltrate 600 plus D 1 tab PO BID RF: 0 levonorgestrel-ethinyl estrad 0.15-0.03 mg tablet 1 tab PO DAILY RF: 0 levothyroxine 200 mcg tablet 200 mcg PO DAILY RF: 0 paroxetine HCl 40 mg tablet 40 mg PO DAILY RF: 0 lorazepam [Ativan] 0.5 mg tablet 0.5 mg PO BID PRN (Reason: anxiety) Qty: 10 RF: 0 Discharge Orders: Discharge Order (Routine); Ordered 10/10/21 Ordered By: Ellis Mcgregor/Other Patient Handouts: Diverticulosis and Diverticulitis, Diverticulitis Dc Admission Data Admit Date/Time: 10/08/21 19:16 Attending Provider: Delta Rainey Admit Provider: Jamison Sharp Primary Care Provider: Kyle Carrasquillo Other Providers: Cj Dick ; Jamison Sharp Other Interventions: Discharge Summary Assessment (RN) Last Done: 10/10/21 12:39 Coding Level of Care Code D/C DAY MANAGEMENT >30 MINS Diagnoses Diverticulitis K57.92 Hypothyroidism (acquired) E03.9 Anxiety F41.9 DVT prophylaxis Z29.9 Discharge planning issues Z02.9 Tobacco abuse Z72.0
--- NOTE | 2021-10-10 14:17 | Surgery Progress Note ---
Date of Service October 10, 2021 Assessment & Plan (1) Acute diverticulitis: Plan: pt is a 30 year-old female who was admitted to hospital for acute diverticulitis, doing better, no significant abdominal pain, no fever, plan, pt wants to go home today, with po antibiotic Cipro + flagyl x 7 days, F/U Dr. Dick in 2 weeks, Admission and Anticipated Discharge Date Admission Date: October 08, 2021 Supervising Physician Co-Signing Physician Notes Patient seen and examined, agree with above. Admitted with uncomplicated diverticulitis. Feels slightly better this morning. On exam afebrile, tenderness to palpation in the left lower quadrant, though improved from yesterday. WBC 15 down from 18. Recommend continued IV antibiotics, advance diet as tolerated as pain resolves and white blood cell count normalizes. She should be discharged with antibiotics. Outpatient colonoscopy in 2 to 3 months after resolution of symptoms. No surgical indication at this time. Surgery will follow peripherally, Dr. Cruz covering over the weekend. Subjective pt has resolution in abdominal pain and now is just low level. surgery feels may need more antibiotic, and will slowly advance diet 10/10/2021 2:11PM Dr. Cruz Patient here with acute diverticulitis with microperforation doing better, less abdominal pain, no nausea, no vomiting, no diarrhea, no fever, tolerated clear diet, Physical Exam Constitutional: WD/WN, vitals as above Eyes: PERRL, conjunctivae normal, anicteric sclerae Neck: trachea midline, no thyromegaly Respiratory: normal respiratory effort, lungs clear to auscultation Cardiovascular: RRR, no murmur, no edema Gastrointestinal (Abdomen): soft, mild tenderness at left side abdomen, no rebound pain, no distend, BS + Musculoskeletal: no cyanosis or clubbing, extremities motor strength 5/5 Neurologic: patellar DTR's 2+ bilat, sensation intact Psychiatric: A+Ox3, euthymic affect Results & Data ([facility]) Vital Signs (Past 12 Hours) Vital Signs Temp Pulse Resp BP Pulse Ox 10/10/21 12:39 36.6 C 81 20 141/88 H 97 10/10/21 07:20 36.6 C 81 20 141/88 H 97 Laboratory Results Abnormal lab results 10/10/21 10/10/21 Range/Units 09:35 09:35 RBC 4.12 L (4.2-5.4) M/uL Hgb 11.5 L (12.0-16.0) g/dL Hct 34.9 L (37-47) % Neut # (Auto) 8.45 H (1.4-6.5) K/uL Lymph # (Auto) 1.01 L (1.2-3.4) K/uL [place] # (Auto) 0.60 H (0.11-0.59) K/uL Immature Gran # (Auto) 0.03 H (0.00-0.02) K/uL Creatinine 0.49 L (0.6-1.2) mg/dl Glucose 122 H (70-99(Fasting)) mg/dl Calcium 6.2 L (8.5-10.1) mg/dl
== END 2021-10-10 15:16 | disposition home or self-care (01) | DRG 392 ==
LOC: ED 15:14 → EDINP 19:16 → SUATTDRO 19:16 → 3N 21:12